=== PATIENT | male | born 1975 ===

== ENCOUNTER 2017-07-26 12:31 | Emergency (ER) | payer OTHER ==
[2017-07-26 12:53] VITALS: RESP 18
[2017-07-26] MEDS ORDERED: Sodium Chloride 0.9% 1,000 ML IV STA ×2 (13:33→14:39)
[2017-07-26] MEDS ORDERED: Piperacillin/Tazobact 3.375 GM in Sodium Chloride 0.9% 100 ML IVPB STA (13:34)
--- NOTE | 2017-07-26 13:41 | ED PDOC ---
HPI: General Adult Time Seen by Provider: 07/26/17 13:10 Chief Complaint (Nursing): Abnormal Skin Integrity History Per: Patient Additional Complaint(s): Pt. states since Thursday he's had a painful mass around his testicular area which has been progressively enlarging. Reports that he was waiting for mass to burst open but it has not. Pain became worse today. Denies dysuria, hematuria, fever, penile discharge, testicular trauma. Against Medical Advice - AMA Patient Left Against Medical Advice: The patient declines admission to the hospital and wishes to leave the Emergency Department. This action is against my medical advice. This decision was made with informed refusal. The patient was told that admission to the hospital is necessary. Explanation of the reasons why were discussed. The risks of leaving were explained to the patient and include, but are not limited to, worsening of known or currently unknown conditions, permanent disability and from undiagnosed or untreated conditions. The patient has the capacity to make this informed decision and understands my explanation of the current medical problem and risks of leaving. The patient voluntarily accepts these risks and signed an AMA form documenting our conversation. The patient was given the opportunity to ask questions and reconsider. The patient was encouraged to return to the Emergency Department at any time for further care. 07/26/17 16:55 Patient informed that he will need to stay in hospital for further antibiotic treatment and surgical consultation. Pt. does not want to wait any longer as he cannot stay in the hospital tonight. Pt. informed that this infection can spread easily spread and cause . States he will return to ED tomorrow morning. Pt. will sign AMA. Past Medical History Reviewed: Historical Data, Nursing Documentation, Vital Signs Vital Signs: Last Vital Signs Temp 98.2 F 07/26/17 12:51 Pulse 98 H 07/26/17 12:51 Resp 18 07/26/17 12:51 BP 134/67 07/26/17 12:51 Pulse Ox 98 07/26/17 15:30 - Family History Family History: States: Unknown Family Hx - Immunization History Hx Tetanus Toxoid Vaccination: No Hx Influenza Vaccination: No Hx Pneumococcal Vaccination: No - Home Medications Home Medications: Ambulatory Orders Medication Instructions Recorded Neomycin/Polymyxin/Hydrocortis 3 drop TOP TID #1 bottle 07/30/16 [Cortisporin Otic Susp] - Allergies Allergies/Adverse Reactions: Allergies Allergy/AdvReac Type Severity Reaction Status Date / Time No Known Allergies Allergy Verified 07/26/17 12:51 Review of Systems ROS Statement: Except As Marked, All Systems Reviewed And Found Negative Physical Exam - Physical Exam Appears: Positive for: Well, Non-toxic, No Acute Distress Skin: Positive for: Normal Color, Warm, DRY Eye Exam: Positive for: Normal appearance Gastrointestinal/Abdominal: Positive for: Normal Exam, Soft. Negative for: Tenderness Male Genital Exam: Positive for: other (large perineal erythematous mass which is tender and fluctuant without break in skin integrity or discharge noted). Negative for: lesions, scrotum tenderness (R), scrotum tenderness (L), testicular tenderness (R), testicular tenderness (L), urethral discharge Extremity: Positive for: Normal ROM Neurologic/Psych: Positive for: Alert, Oriented. Negative for: Aphasia, Facial Droop - Laboratory Results Result Diagrams: 07/26/17 14:30 07/26/17 14:30 - ECG O2 Sat by Pulse Oximetry: 98 - Progress ED Course And Treament: Labs ordered. Blood culture x 2, urine culture ordered. CT pelvis w/ IV contrast, testicular US ordered. Zosyn IV, Vancomycin IV ordered. 1541 VBG lactate: 2.3 Repeat 3hr VBG ordered. IV NS bolus ordered. 1530 Testicular US: non-specific scrotal wall thickening/edema; no evidence testicular torsion as per radiology report. Pending CT results. 1604 CT abd/pelvis w/ IV contrast: superficial L perineal abscess measuring 5.2 x 1.8cm with reactive swelling to scrotum and penis. Case d/w Dr. Farfan who recommends admission for pt. due to elevated WBC and lactate. Case d/w Dr. Ely, surgical garment assembly supervisor, who will see patient in hospital today. Pt. informed of results and plan but does not want to stay in the hospital and needs to leave immediately. Vancomycin was ordered but not given. Pt. does not want to wait for antibiotic infusion. Toradol 30mg IVP ordered. See AMA note. Disposition - Clinical Impression Clinical Impression: Perineal abscess, Sepsis - Patient ED Disposition Is Patient to be Admitted: No - Disposition Disposition: Against Medical Advice Disposition Time: 16:04 Condition: STABLE Additional Instructions: RETURN TO ED IMMEDIATELY FOR ANY CONCERNS OR QUESTIONS Instructions: Against Medical Advice (ED), Abscess (ED) Forms: [facility] ([place]ian)
[2017-07-26 14:19] LABS: VENOUS BLOOD GAS BASE EXCESS 0.8 mmol/L (0.0-2.0); VENOUS BLOOD GAS PCO2 46 mmHg (40-60); VENOUS BLOOD PH 7.37 (7.32-7.43)
[2017-07-26 14:46] LABS: ALB/GLOB RATIO 1.2 (1.0-2.1); ALKALINE PHOSPHATASE 90 U/L (38-126); ALT/SGPT 56 U/L (21-72); AST/SGOT 37 U/L (17-59); BILIRUBIN,TOTAL 0.3 mg/dl (0.2-1.3); BLOOD UREA NITROGEN 9 mg/dl (9-20); CALCIUM 9.4 mg/dL (8.4-10.2); CARBON DIOXIDE 24 mmol/L (22-30); CHLORIDE 101 mmol/L (98-107); GFR AFRICAN-AMERICAN > 60; GLUCOSE,RANDOM 84 mg/dL (75-110); SODIUM 139 mmol/l (132-148)
--- NOTE | 2017-07-26 14:55 | US ---
HISTORY: scrotal swelling TECHNIQUE: Realtime sonography through the scrotum with color and doppler flow. COMPARISON: None Available. FINDINGS: RIGHT TESTICLE: Measures 4.3 x 3.2 x 1.9 cm. Normal echotexture and flow. RIGHT EPIDIDYMIS: Epididymal head measures 1.4 x 0.9 x 0.9 cm. Grossly unremarkable appearance with normal flow. 0.4 x 0.3 x 0.3 centimeter epididymal head cyst. LEFT TESTICLE: Measures 4.0 x 2.7 x 2.0 cm. Normal echotexture and flow. LEFT EPIDIDYMIS: Epididymal head measures 1.1 x 1.1 x 0.5 cm. Grossly unremarkable appearance with normal flow. HYDROCELE: None. VARICOCELE: None. OTHER FINDINGS: Nonspecific scrotal wall thickening/edema. IMPRESSION: Nonspecific scrotal wall thickening/ edema. No evidence of testicular torsion.
[2017-07-26 14:57] LABS: BASO % 0.3 % (0.0-2.0); EOS # 0.2 K/uL (0.0-0.7); EOS % 1.4 % (0.0-4.0); HEMATOCRIT 39.2 % (35.0-51.0); LYMPH # 1.2 K/uL (1.0-4.3); LYMPH % 9.1 % (20.0-40.0); MEAN CELL VOLUME 85.1 fl (80.0-94.0); MEAN CORPUSCULAR HEMOGLOBIN 27.4 pg (27.0-31.0); MEAN CORPUSCULAR HGB CONC 32.2 g/dL (33.0-37.0); MEAN PLATELET VOLUME 8.2 fl (7.2-11.7); MONO # 1.4 K/uL (0.0-0.8); MONO % 10.7 % (0.0-10.0); NEUT # 9.9 K/uL (1.8-7.0); NEUT % 78.5 % (50.0-75.0); PLATELET COUNT 278 K/uL (130-400); RED CELL DISTRIBUTION WIDTH 14.5 % (11.5-14.5); WHITE BLOOD COUNT 12.6 K/uL (4.8-10.8)
[2017-07-26] MEDS ORDERED: Iohexol 300 100 ML IJ ONE (15:12)
[2017-07-26 15:28] LABS: EOSINOPHIL 2 % (0-7); NEUTROPHIL 75 % (42-75); TOTAL CELLS COUNTED 100
--- NOTE | 2017-07-26 16:06 | CT ---
PROCEDURE: CT Abdomen and Pelvis with contrast HISTORY: perineal mass COMPARISON: None. TECHNIQUE: Contrast dose: 95 mL Omnipaque 300 Radiation dose: Total exam DLP = 1236.5 mGy-cm. This CT exam was performed using one or more of the following dose reduction techniques: Automated exposure control, adjustment of the mA and/or kV according to patient size, and/or use of iterative reconstruction technique. FINDINGS: LOWER THORAX: Unremarkable. LIVER: Unremarkable. No gross lesion or ductal dilatation. GALLBLADDER AND BILE DUCTS: Unremarkable. PANCREAS: Unremarkable. No gross lesion or ductal dilatation. SPLEEN: Unremarkable. ADRENALS: Unremarkable. No mass. KIDNEYS AND URETERS: Unremarkable. No hydronephrosis. No solid mass. VASCULATURE: Unremarkable. No aortic aneurysm. BOWEL: Colonic diverticulosis without evidence for diverticulitis. No obstruction. No gross mural thickening. APPENDIX: Normal appendix. PERITONEUM: Small fat containing . No free fluid. No free air. LYMPH NODES: Unremarkable. No enlarged lymph nodes. BLADDER: Unremarkable. REPRODUCTIVE: Scrotal and penile swelling. BONES: No acute fracture. OTHER FINDINGS: 5.2 x 1.8 centimeter rim enhancing fluid collection in the left perineal area (series 3, image 210). IMPRESSION: Superficial left perineal abscess measuring 5.2 x 1.8 centimeter. Reactive scrotal and penile soft tissue swelling. Additional findings as above. Findings conveyed to PELON Jara by Dr. Jacinto at 4 p.m. on 07/26/2017.
[2017-07-26 17:00] VITALS: BP 139/86; PULSE 94; TEMP 98.3
[2017-07-26 17:19] VITALS: O2SAT 98
[2017-07-26 17:22] LABS: RBC URINE 1 /hpf (0-3); URINE BILIRUBIN NEGATIVE (NEGATIVE); URINE BLOOD NEGATIVE (NEGATIVE); URINE COLOR STRAW (YELLOW); URINE GLUCOSE (UA) NEG (Normal); URINE KETONE NEGATIVE (NEGATIVE); URINE LEUKOCYTE ESTERASE NEG Leu/uL (Negative); URINE PROTEIN NEGATIVE (NEGATIVE); URINE UROBILINOGEN 0.2-1.0 mg/dL (0.2-1.0); WBC URINE < 1 /hpf (0-5)
== END 2017-07-26 17:02 | disposition left against medical advice (07) ==
LOC: H.ER 12:31
DX: L02.215 Cutaneous abscess of perineum (principal); A41.9 Sepsis, unspecified organism
CPT/HCPCS: 74177; 80053; 81003; 82803; 85025; 87040; 87086; 93975; 96374; 99283; J1885; J2543; J7040; Q9967

== ENCOUNTER 2017-07-27 13:05 | Observation (INO) | payer OTHER ==
--- NOTE | 2017-07-27 14:22 | ED PDOC ---
HPI: Male Pain Time Seen by Provider: 07/27/17 13:48 Chief Complaint (Nursing): Male Genitourinary Chief Complaint (Provider): Abscess History Per: Patient History/Exam Limitations: no limitations Additional Complaint(s): Pt. with perineal area swelling and pain for 3 days. Here yesterday and dx with abscess in the area. Pt. AMA and is back after moving his car yesterday. Pt. with no abd pain, testicular pain, weakness, headaches, dizziness, fever, chills. No numbness, tingles. Past Medical History Reviewed: Nursing Documentation, Vital Signs Vital Signs: Last Vital Signs Temp 99 F 07/27/17 13:34 Pulse 103 H 07/27/17 13:34 Resp 18 07/27/17 13:34 BP 132/84 07/27/17 13:34 Pulse Ox 100 07/27/17 13:34 - Medical History PMH: No Chronic Diseases - Surgical History Surgical History: No Surg Hx - Family History Family History: States: Unknown Family Hx - Living Arrangements Living Arrangements: With Family - Social History Alcohol: None Drugs: Denies - Immunization History Hx Tetanus Toxoid Vaccination: No Hx Influenza Vaccination: No Hx Pneumococcal Vaccination: No - Home Medications Home Medications: Ambulatory Orders Medication Instructions Recorded Neomycin/Polymyxin/Hydrocortis 3 drop TOP TID #1 bottle 07/30/16 [Cortisporin Otic Susp] - Allergies Allergies/Adverse Reactions: Allergies Allergy/AdvReac Type Severity Reaction Status Date / Time No Known Allergies Allergy Verified 07/26/17 12:51 Review of Systems ROS Statement: Except As Marked, All Systems Reviewed And Found Negative Genitourinary Male: Positive for: Other (perineal pain) Physical Exam - Physical Exam Appears: Positive for: Non-toxic, No Acute Distress Skin: Positive for: Normal Color, Warm, DRY Eye Exam: Positive for: EOMI, Normal appearance, PERRL ENT: Positive for: Normal ENT Inspection Neck: Positive for: Normal, Painless ROM Cardiovascular/Chest: Positive for: Regular Rate, Rhythm Respiratory: Positive for: CNT, Normal Breath Sounds Gastrointestinal/Abdominal: Positive for: Normal Exam, Bowel Sounds, Soft. Negative for: Tenderness Male Genital Exam: Positive for: other (perineal yanira with 5.5cm abscess with fluctuance, erythema, tenderness toward L side) Back: Positive for: Normal Inspection. Negative for: L CVA Tenderness, R CVA Tenderness Extremity: Positive for: Normal ROM. Negative for: Tenderness, Pedal Edema Neurologic/Psych: Positive for: Alert, Oriented - Laboratory Results Result Diagrams: 07/27/17 14:40 Interpretation Of Abn Labs: 13.2 wbc - ECG O2 Sat by Pulse Oximetry: 100 Pulse Ox Interpretation: Normal - Progress ED Course And Treament: 1452: Stable. Spoke with Dr. Elias who will admit. Spoke with Dr. Quintanilla who will consult and does not want to be primary admitting doctor. Pt. stable. Severe sepsis based on labs from yesterday. WBC mild increase today. Disposition - Clinical Impression Clinical Impression: Perineal abscess, Severe sepsis - Patient ED Disposition Is Patient to be Admitted: No Counseled Patient/Family Regarding: Studies Performed, Diagnosis - Disposition Disposition Time: 14:53 Condition: FAIR - Pt Status Changed To: Hospital Disposition Of: Inpatient - Admit Certification Admit to Inpatient:: After my assessment, the patient will require hospitalization for at least two midnights. This is because of the severity of symptoms shown, intensity of services needed, and/or the medical risk in this patient being treated as an outpatient. - POA Present On Arrival: None
[2017-07-27] MEDS ORDERED: Sodium Chloride 0.9% 1,000 ML IV STA (14:23)
[2017-07-27 14:47] LABS: BASO # 0.1 K/uL (0.0-0.2); BASO % 0.4 % (0.0-2.0); EOS # 0.2 K/uL (0.0-0.7); EOS % 1.2 % (0.0-4.0); HEMATOCRIT 38.2 % (35.0-51.0); LYMPH # 0.9 K/uL (1.0-4.3); LYMPH % 7.2 % (20.0-40.0); MEAN CORPUSCULAR HEMOGLOBIN 27.3 pg (27.0-31.0); MEAN CORPUSCULAR HGB CONC 32.5 g/dL (33.0-37.0); MONO # 1.3 K/uL (0.0-0.8); MONO % 9.9 % (0.0-10.0); NEUT # 10.8 K/uL (1.8-7.0); NEUT % 81.3 % (50.0-75.0); RED CELL DISTRIBUTION WIDTH 14.2 % (11.5-14.5); WHITE BLOOD COUNT 13.2 K/uL (4.8-10.8)
[2017-07-27 14:54] LABS: BLOOD UREA NITROGEN 10 mg/dl (9-20); CALCIUM 9.3 mg/dL (8.4-10.2); CARBON DIOXIDE 24 mmol/L (22-30); CHLORIDE 102 mmol/L (98-107); GFR AFRICAN-AMERICAN > 60; GLUCOSE,RANDOM 93 mg/dL (75-110); POTASSIUM 3.9 MMOL/L (3.6-5.0); SODIUM 136 mmol/l (132-148); TOTAL PROTEIN 7.7 G/DL (6.3-8.2)
[2017-07-27] MEDS ORDERED: Clindamycin 600mg/50ml NS 600 MG/50 ML BAG IVPB STA (14:54)
[2017-07-27 14:55] LABS: ALB/GLOB RATIO 1.3 (1.0-2.1); ALKALINE PHOSPHATASE 91 U/L (38-126); ALT/SGPT 67 U/L (21-72); AST/SGOT 34 U/L (17-59); BILIRUBIN,TOTAL 0.4 mg/dl (0.2-1.3)
[2017-07-27 15:10] LABS: VENOUS BLOOD GAS PCO2 38 mmHg (40-60); VENOUS BLOOD PH 7.43 (7.32-7.43)
[2017-07-27] MEDS: Clindamycin 600mg/50ml NS 600 MG/50 ML BAG IVPB SCH ×2 (15:25→23:53)
[2017-07-27] MEDS: Sodium Chloride 0.9% 1,000 ML IV SCH (15:45)
--- NOTE | 2017-07-27 16:33 | CP.PCM.HP ---
History of Present Illness - History of Present Illness History of Present Illness: This is a 41 year old male with no significant past medical history, from [place], who presents to the ED with the complaint of perineal swelling and pain getting progressively worse over the past week. The patient states that he had similar swelling in that area about 2 months ago but it went away after about a week. This time the swelling and pain is much worse prompting him to come to the ED. The patient originally came to the ED yesterday but left AMA. He came back again today due to the pain. In the ED, he was seen to have a large perineal abscess and surrounding cellulitis and meets the criteria for sepsis. Dr. Quintanilla, general surgery, was consulted from the ED. The patient is to be placed on observation for further workup and surgical management. Patient denies chest pain, shortness of breath, fevers, chills, nausea, vomiting, diarrhea, headache. Rest of ROS as below. All of the patient's and/or family's questions were answered at the bedside. Present on Admission - Present on Admission Any Indicators Present on Admission: No Review of Systems - Hematologic/Lymphatic Additional comments: GENERAL/CONSTITUTIONAL: The patient denies fever, fatigue, weakness, weight gain or weight loss. HEAD, EYES, EARS, NOSE AND THROAT: Eyes - The patient denies pain, redness, loss of vision, double or blurred vision, flashing lights or spots, dryness, Ears, nose, mouth and throat. The patient denies ringing in the ears, loss of hearing, nosebleeds, loss of sense of smell, dry sinuses, sinusitis, post nasal drip, CARDIOVASCULAR: The patient denies chest pain, chest pressure, or irregular heartbeats, RESPIRATORY: The patient denies chronic dry cough, coughing up blood, coughing up mucus, wheezing, or shortness of breath. GASTROINTESTINAL: The patient denies decreased appetite, nausea, vomiting, vomiting blood or coffee ground material, heartburn, regurgitation, diarrhea, constipation, gas, blood in the stools, black tarry stools. GENITOURINARY: The patient denies difficult urination, pain or burning with urination, blood in the urine, frequency, or urgency MUSCULOSKELETAL: The patient denies arm, buttock, thigh or calf cramps. No joint or muscle pain. No muscle weakness or tenderness. No joint swelling, neck pain, back pain. SKIN: + Perineal pain and swelling. The patient denies easy bruising, skin rash , hives, sensitivity to sun exposure, tightness, nodules or bumps, hair loss, color changes in the hands or feet with cold. NEUROLOGIC: The patient denies headache, dizziness, fainting, muscle spasm, loss of consciousness, sensitivity or pain in the hands and feet or memory loss. PSYCHIATRIC: The patient denies anxiety, depression, or thoughts of suicide. ENDOCRINE: The patient denies intolerance to hot or cold temperature, flushing, fingernail changes, increased thirst, or increased salt intake HEMATOLOGIC/LYMPHATIC: The patient denies anemia, bleeding tendency or clotting tendency. ALLERGIC/IMMUNOLOGIC: The patient denies rhinitis, asthma, skin sensitivity, latex allergies or sensitivity. Past Patient History - Infectious Disease Hx of Infectious Diseases: None - Past Medical History & Family History Past Medical History?: No Pertinent Family History: Mother has diabetes mellitus - Past Social History Smoking Status: Never Smoked Alcohol: None Drugs: Denies - PSYCHIATRIC Hx Substance Use: No - SURGICAL HISTORY Hx Surgeries: No - ANESTHESIA Hx Anesthesia: No Meds Allergies/Adverse Reactions: Allergies Allergy/AdvReac Type Severity Reaction Status Date / Time No Known Allergies Allergy Verified 07/26/17 12:51 Physical Exam - Additional Findings Additional findings: Physical exam: Constitutional- cooperative, awake, alert Head- NCAT, PERRL Eye- PERRL, EOMI ENT- normal exam, MMM. Neck- normal inspection, supple, no JVD Respiratory- CTAB, no wheezes rales rhonchi Cardiovascular- RRR, +S1, +S2 no MRG GI/Abdominal- normal bowel sounds, soft, no mass, no hsm Skin- + 4x4 cm area of the perineum with fluctuance and surrounding erythema consistent with abscess, with minimal drainage. Skin is otherwise warm, dry Extremities Exam- normal capillary refill, normal inspection Neurological Exam- alert, awake, oriented Psych- normal mood, normal affect Results - Vital Signs Recent Vital Signs: Last Vital Signs Temp 99 F 07/27/17 13:34 Pulse 103 H 07/27/17 13:34 Resp 18 07/27/17 13:34 BP 132/84 07/27/17 13:34 Pulse Ox 100 07/27/17 14:53 - Labs Result Diagrams: 07/27/17 14:40 07/27/17 14:40 Labs: Laboratory Results - last 24 hr 07/27/17 07/27/17 07/27/17 14:40 14:40 15:02 WBC 13.2 H RBC 4.55 Hgb 12.4 Hct 38.2 MCV 84.0 MCH 27.3 MCHC 32.5 L RDW 14.2 Plt Count 287 MPV 8.0 Neut % (Auto) 81.3 H Lymph % (Auto) 7.2 L [place] % (Auto) 9.9 Eos % (Auto) 1.2 Baso % (Auto) 0.4 Neut # 10.8 H Lymph # 0.9 L [place] # 1.3 H Eos # 0.2 Baso # 0.1 pO2 33 VBG pH 7.43 VBG pCO2 38 L VBG HCO3 24.8 VBG Total CO2 26.4 VBG O2 Sat (Calc) 73.0 H VBG Base Excess 1.0 VBG Potassium 4.1 Glucose 97 Lactate 1.4 FiO2 21.0 Sodium 136 135.0 Potassium 3.9 Chloride 102 105.0 Carbon Dioxide 24 Anion Gap 14 BUN 10 Creatinine 0.8 Est GFR ( Amer) > 60 Est GFR (Non-Af Amer) > 60 Random Glucose 93 Calcium 9.3 Total Bilirubin 0.4 AST 34 ALT 67 Alkaline Phosphatase 91 Total Protein 7.7 Albumin 4.3 Globulin 3.4 Albumin/Globulin Ratio 1.3 Venous Blood Potassium 4.1 Assessment & Plan - Assessment and Plan (Free Text) Plan: ASSESSMENT/PLAN The patient is a 41 year old male admitted for sepsis due to perineal abscess Perineal abscess and sepsis - Observation on telemetry - General surgery consultation with Dr. Quintanilla for I&D. Patient is at acceptable medical risk for procedure given no medical problems. - Continue Clindamycin 600 mg IVPB for MRSA coverage - Bacid for c. diff prophylaxis while on clindamycin - Toradol for pain control - Fever PRN for fever - Monitor vitals - IV fluids Dehydration - Concentrated urine, normal renal fxn - NS at 75 cc/hour overnight DVT prophylaxis - SCDs
--- NOTE | 2017-07-27 17:45 | CP.PCM.CON ---
History of Present Illness - History of Present Illness History of Present Illness: General Surgery Consult Note for Dr. Quintanilla This 41M with a PMH of multiple abscesses presents to the ED due to pain in his perineum since . He was reported to the Ed yesterday however he left AMA. Today he returns with the same complaint. He denies fevers, chills, chest pain, SOB nausea vomiting diarrhea or any other systemic symptoms. He reports some non foul smelling drainage noted on his underwear. PMH: Denies PSH: Denies Social: Denies Tobacco, Ethanol, Drugs All: NKDA Review of Systems - Review of Systems All systems: reviewed and no additional remarkable complaints except - EENT Eyes: absent: Loss of Vision Ears: absent: Ear Discharge, Tinnitus, Dizziness - Cardiovascular Cardiovascular: absent: Chest Pain, Chest Pain at Rest, Syncope - Respiratory Respiratory: absent: Dyspnea, Dyspnea on Exertion, Chest Congestion - Gastrointestinal Gastrointestinal: absent: Abdominal Pain, Bloating - Genitourinary Genitourinary: absent: Change in Urinary Stream, Difficulty Urinating, Dysuria - Integumentary Integumentary: Furuncle, Lesions. absent: Bleeding Lesions Additional comments: Fluctuant erythematous lesion on the left perinium Past Patient History - Infectious Disease Hx of Infectious Diseases: None - Past Medical History & Family History Past Medical History?: No - Past Social History Smoking Status: Never Smoked Alcohol: None Drugs: Denies - CARDIAC Hx Cardiac Disorders: No - PULMONARY Hx Respiratory Disorders: No - NEUROLOGICAL Hx Neurological Disorder: No - HEENT Hx HEENT Problems: No - RENAL Hx Chronic Kidney Disease: No - ENDOCRINE/METABOLIC Hx Endocrine Disorders: No - HEMATOLOGICAL/ONCOLOGICAL Hx Blood Disorders: No - INTEGUMENTARY Hx Dermatological Problems: No - MUSCULOSKELETAL/RHEUMATOLOGICAL Hx Musculoskeletal Disorders: No - GENITOURINARY/GYNECOLOGICAL Hx Genitourinary Disorders: No - PSYCHIATRIC Hx Substance Use: No - SURGICAL HISTORY Hx Surgeries: No - ANESTHESIA Hx Anesthesia: No Meds Allergies/Adverse Reactions: Allergies Allergy/AdvReac Type Severity Reaction Status Date / Time No Known Allergies Allergy Verified 07/26/17 12:51 - Medications Medications: Current Medications Acetaminophen (Tylenol 325mg Tab) 650 mg PO Q6 PRN PRN Reason: Fever >100.4 F Sodium Chloride (Sodium Chloride 0.9%) 1,000 mls @ 75 mls/hr IV .[id number] [facility] Last Admin: 07/27/17 15:45 Dose: 75 mls/hr Clindamycin Phosphate (Cleocin In Normal Saline) 600 mg in 50 mls @ 50 mls/hr IVPB Q8H ARELY PRN Reason: Protocol Last Admin: 07/27/17 15:25 Dose: Not Given Ketorolac Tromethamine (Toradol) 30 mg IVP Q6 PRN PRN Reason: Pain, moderate (4-7) Lactobacillus Acidophilus (Bacid Acidophilus) 1 cap PO BID [facility] Physical Exam - Constitutional Appears: Non-toxic - Head Exam Head Exam: ATRAUMATIC, NORMOCEPHALIC - Eye Exam Eye Exam: EOMI - ENT Exam ENT Exam: Mucous Membranes Moist - Respiratory Exam Respiratory Exam: NORMAL BREATHING PATTERN - Cardiovascular Exam Cardiovascular Exam: +S1, +S2 - GI/Abdominal Exam GI & Abdominal Exam: Soft - Rectal Exam Rectal Exam: NORMAL INSPECTION - Neurological Exam Neurological exam: Alert, Oriented x3 - Skin Skin Exam: Dry Additional comments: Tender fluctuant mass in perineum Results - Vital Signs Recent Vital Signs: Last Vital Signs Temp 98.4 F 07/27/17 17:16 Pulse 95 H 07/27/17 17:16 Resp 14 07/27/17 17:16 BP 127/76 07/27/17 17:16 Pulse Ox 99 07/27/17 17:16 - Labs Result Diagrams: 07/27/17 14:40 07/27/17 14:40 Labs: Laboratory Results - last 24 hr 07/27/17 07/27/17 07/27/17 14:40 14:40 15:02 WBC 13.2 H RBC 4.55 Hgb 12.4 Hct 38.2 MCV 84.0 MCH 27.3 MCHC 32.5 L RDW 14.2 Plt Count 287 MPV 8.0 Neut % (Auto) 81.3 H Lymph % (Auto) 7.2 L [place] % (Auto) 9.9 Eos % (Auto) 1.2 Baso % (Auto) 0.4 Neut # 10.8 H Lymph # 0.9 L [place] # 1.3 H Eos # 0.2 Baso # 0.1 pO2 33 VBG pH 7.43 VBG pCO2 38 L VBG HCO3 24.8 VBG Total CO2 26.4 VBG O2 Sat (Calc) 73.0 H VBG Base Excess 1.0 VBG Potassium 4.1 Glucose 97 Lactate 1.4 FiO2 21.0 Sodium 136 135.0 Potassium 3.9 Chloride 102 105.0 Carbon Dioxide 24 Anion Gap 14 BUN 10 Creatinine 0.8 Est GFR ( Amer) > 60 Est GFR (Non-Af Amer) > 60 Random Glucose 93 Calcium 9.3 Total Bilirubin 0.4 AST 34 ALT 67 Alkaline Phosphatase 91 Total Protein 7.7 Albumin 4.3 Globulin 3.4 Albumin/Globulin Ratio 1.3 Venous Blood Potassium 4.1 Assessment & Plan - Assessment and Plan (Free Text) Assessment: 41M with perennial abscess Bedside insicion and drainage ABX Re-evaluate in AM D/W Dr. Dwight Gambino PGY2
[2017-07-27] MEDS ORDERED: Lidocaine 1% Inj (20ml) IJ ONE (17:48)
[2017-07-27] MEDS ORDERED: Bupivacaine 0.5% Inj(30mL) INJ ONE (17:48)
[2017-07-27] MEDS: Lactobacillus Acidophilus 500 MU Cap PO SCH (18:00)
[2017-07-28 05:51] LABS: HEMATOCRIT 34.4 % (35.0-51.0); MEAN CELL VOLUME 84.2 fl (80.0-94.0); MEAN CORPUSCULAR HEMOGLOBIN 28.2 pg (27.0-31.0); MEAN CORPUSCULAR HGB CONC 33.4 g/dL (33.0-37.0); RED CELL DISTRIBUTION WIDTH 14.3 % (11.5-14.5); WHITE BLOOD COUNT 9.6 K/uL (4.8-10.8)
--- NOTE | 2017-07-28 08:24 | CP.PCM.PN ---
Subjective - Date & Time of Evaluation Date of Evaluation: 07/28/17 Time of Evaluation: 07:00 - Subjective Subjective: GENERAL SURGERY PROGRESS NOTE FOR DR. DAVIS Patient seen and examined at bedside. He reports some pain at the I&D site but is not requesting any pain medication. Packing was removed. No drainage was seen. Area was repacked and dressing changed. Objective - Vital Signs/Intake and Output Vital Signs (last 24 hours): Temp Pulse Resp BP Pulse Ox 98.5 F 88 18 116/74 98 07/28/17 05:41 07/28/17 05:41 07/28/17 05:41 07/28/17 05:41 07/28/17 05:41 - Medications Medications: Current Medications Acetaminophen (Tylenol 325mg Tab) 650 mg PO Q6 PRN PRN Reason: Fever >100.4 F Sodium Chloride (Sodium Chloride 0.9%) 1,000 mls @ 75 mls/hr IV .[id number] [facility] Last Admin: 07/27/17 15:45 Dose: 75 mls/hr Clindamycin Phosphate (Cleocin In Normal Saline) 600 mg in 50 mls @ 50 mls/hr IVPB Q8H ARELY PRN Reason: Protocol Last Admin: 07/27/17 23:53 Dose: 50 mls/hr Ketorolac Tromethamine (Toradol) 30 mg IVP Q6 PRN PRN Reason: Pain, moderate (4-7) Lactobacillus Acidophilus (Bacid Acidophilus) 1 cap PO BID [facility] Last Admin: 07/27/17 18:00 Dose: 1 cap - Labs Labs: 07/28/17 04:20 07/27/17 14:40 - Constitutional Appears: Well, Non-toxic, No Acute Distress - Head Exam Head Exam: ATRAUMATIC, NORMAL INSPECTION - Eye Exam Eye Exam: EOMI, Normal appearance - Respiratory Exam Respiratory Exam: NORMAL BREATHING PATTERN. absent: Respiratory Distress - Cardiovascular Exam Cardiovascular Exam: +S1, +S2 - Exam Additional comments: left scrotal I&D: mild erythema, mild induration, tender. Packing removed, no drainage seen. New packing placed. Dressing changed, - Neurological Exam Neurological Exam: Alert, Awake, Oriented x3 - Psychiatric Exam Psychiatric exam: Normal Affect, Normal Mood - Skin Skin Exam: Dry, Normal Color, Warm Assessment and Plan - Assessment and Plan (Free Text) Assessment: 41yo M with perineal abscess - Afebrile, VSS - Leukocytosis resolved, WBC 9.6 today - Packing removed and replaced - Continue Antibiotics - Will discuss plan with Dr. Dwight Ferrer PGY-3
[2017-07-28 08:30] VITALS: RESP 20
[2017-07-28] MEDS: Lactobacillus Acidophilus 500 MU Cap PO SCH (09:04)
[2017-07-28] MEDS: Clindamycin 600mg/50ml NS 600 MG/50 ML BAG IVPB SCH (09:04)
[2017-07-28] MEDS: Sodium Chloride 0.9% 1,000 ML IV SCH (09:05)
--- NOTE | 2017-07-28 10:42 | CP.PCM.PN ---
<Ghassan Sabillon - Last Filed: 07/28/17 10:38> Subjective - Date & Time of Evaluation Date of Evaluation: 07/28/17 Time of Evaluation: 10:38 - Subjective Subjective: 41 year old male with no significant PMHx seen at bedside one day s/p bedside I and D of perineal abscess. Patient is AAO x 3 and NAD resting comfortably in bed. Denies any acute overnight events. States that the surgical residents came earlier today and changed his dressing without incident. Denies any pain in the area of the I and D and states that he feels much better. Denies any acute N/V/F /C/CP/SOB/posterior calf pain/urinary retention/constipation. Denies any further complaints at this time Objective - Vital Signs/Intake and Output Vital Signs (last 24 hours): Temp Pulse Resp BP Pulse Ox 97.6 F 69 20 159/84 H 97 07/28/17 08:27 07/28/17 08:27 07/28/17 08:27 07/28/17 08:27 07/28/17 08:27 - Medications Medications: Current Medications Acetaminophen (Tylenol 325mg Tab) 650 mg PO Q6 PRN PRN Reason: Fever >100.4 F Clindamycin Phosphate (Cleocin In Normal Saline) 600 mg in 50 mls @ 50 mls/hr IVPB Q8H ARELY PRN Reason: Protocol Last Admin: 07/28/17 09:04 Dose: 50 mls/hr Ketorolac Tromethamine (Toradol) 30 mg IVP Q6 PRN PRN Reason: Pain, moderate (4-7) Lactobacillus Acidophilus (Bacid Acidophilus) 1 cap PO BID COUNTS INCLUDE 234 BEDS AT THE [facility] Last Admin: 07/28/17 09:04 Dose: 1 cap - Labs Labs: 07/28/17 04:20 07/27/17 14:40 - Constitutional Appears: Well, Non-toxic, No Acute Distress - Head Exam Head Exam: ATRAUMATIC, NORMOCEPHALIC - Eye Exam Eye Exam: EOMI, PERRL Pupil Exam: PERRL - ENT Exam ENT Exam: Mucous Membranes Moist - Neck Exam Neck Exam: Full ROM. absent: Tenderness - Respiratory Exam Respiratory Exam: Clear to Ausculation Bilateral, NORMAL BREATHING PATTERN - Cardiovascular Exam Cardiovascular Exam: REGULAR RHYTHM - GI/Abdominal Exam GI & Abdominal Exam: Soft. absent: Firm, Guarding, Rigid, Tenderness - Rectal Exam Rectal Exam: Deferred - Extremities Exam Extremities Exam: Normal Inspection - Neurological Exam Neurological Exam: Alert, Awake, Oriented x3 - Psychiatric Exam Psychiatric exam: Normal Affect, Normal Mood - Skin Skin Exam: Intact, Normal Color, Warm Assessment and Plan - Assessment and Plan (Free Text) Assessment: The patient is a 41 year old male admitted on 07/27/17 for sepsis due to perineal abscess. Patient underwent bedside I and D of abscess on same day and was kept in Tele for 23 hour obs. Patient hemodynamically stable at this time and to be DC home this afternoon pending clearance from surgery. Plan: Perineal abscess and sepsis - Observation on telemetry - Bedside I and D of abscess with Dr. Quintanilla 07/27/17 - Continue Clindamycin 600 mg IVPB for MRSA coverage - Bacid for c. diff prophylaxis while on clindamycin - Toradol for pain control - Tylenol PRN for fever - Monitor vitals - IV fluids Anemia - H/H 11.5/34.4 - Most likely secondary to I and D - Monitor HTN - BP 159/84 Dehydration - Concentrated urine, normal renal fxn - NS at 75 cc/hour given overnight DVT prophylaxis - SCDs <Mekhi Elias - Last Filed: 07/28/17 16:58> Objective - Vital Signs/Intake and Output Vital Signs (last 24 hours): Temp Pulse Resp BP Pulse Ox 97.9 F 73 20 125/78 99 07/28/17 11:52 07/28/17 11:52 07/28/17 11:52 07/28/17 11:52 07/28/17 11:52 - Labs Labs: 07/28/17 04:20 07/27/17 14:40
[2017-07-28 11:53] VITALS: BP 125/78; PULSE 73; TEMP 97.9; O2SAT 99
--- NOTE | 2017-07-28 17:06 | CP.PCM.DIS ---
Provider - Provider Date of Admission: 07/27/17 14:51 Attending physician: Regan Elias DO Consults: Dr. Quintanilla, surgery Time Spent in preparation of Discharge (in minutes): 25 Hospital Course - Lab Results Lab Results: Most Recent Lab Values WBC 9.6 K/uL (4.8-10.8) 07/28/17 04:20 RBC 4.09 Mil/uL (4.40-5.90) L 07/28/17 04:20 Hgb 11.5 g/dL (12.0-18.0) L 07/28/17 04:20 Hct 34.4 % (35.0-51.0) L 07/28/17 04:20 MCV 84.2 fl (80.0-94.0) 07/28/17 04:20 MCH 28.2 pg (27.0-31.0) 07/28/17 04:20 MCHC 33.4 g/dL (33.0-37.0) 07/28/17 04:20 RDW 14.3 % (11.5-14.5) 07/28/17 04:20 Plt Count 274 K/uL (130-400) 07/28/17 04:20 MPV 8.0 fl (7.2-11.7) 07/27/17 14:40 Neut % (Auto) 81.3 % (50.0-75.0) H 07/27/17 14:40 Lymph % (Auto) 7.2 % (20.0-40.0) L 07/27/17 14:40 [place] % (Auto) 9.9 % (0.0-10.0) 07/27/17 14:40 Eos % (Auto) 1.2 % (0.0-4.0) 07/27/17 14:40 Baso % (Auto) 0.4 % (0.0-2.0) 07/27/17 14:40 Neut # 10.8 K/uL (1.8-7.0) H 07/27/17 14:40 Lymph # 0.9 K/uL (1.0-4.3) L 07/27/17 14:40 [place] # 1.3 K/uL (0.0-0.8) H 07/27/17 14:40 Eos # 0.2 K/uL (0.0-0.7) 07/27/17 14:40 Baso # 0.1 K/uL (0.0-0.2) 07/27/17 14:40 pO2 33 mm/Hg (30-55) 07/27/17 15:02 VBG pH 7.43 (7.32-7.43) 07/27/17 15:02 VBG pCO2 38 mmHg (40-60) L 07/27/17 15:02 VBG HCO3 24.8 mmol/L 07/27/17 15:02 VBG Total CO2 26.4 mmol/L (22-28) 07/27/17 15:02 VBG O2 Sat (Calc) 73.0 % (40-65) H 07/27/17 15:02 VBG Base Excess 1.0 mmol/L (0.0-2.0) 07/27/17 15:02 VBG Potassium 4.1 mmol/L (3.6-5.2) 07/27/17 15:02 Sodium 135.0 mmol/L (132-148) 07/27/17 15:02 Chloride 105.0 mmol/L (98-107) 07/27/17 15:02 Glucose 97 mg/dL (75-110) 07/27/17 15:02 Lactate 1.4 mmol/L (0.7-2.1) 07/27/17 15:02 FiO2 21.0 % 07/27/17 15:02 Sodium 136 mmol/l (132-148) 07/27/17 14:40 Potassium 3.9 MMOL/L (3.6-5.0) 07/27/17 14:40 Chloride 102 mmol/L (98-107) 07/27/17 14:40 Carbon Dioxide 24 mmol/L (22-30) 07/27/17 14:40 Anion Gap 14 (10-20) 07/27/17 14:40 BUN 10 mg/dl (9-20) 07/27/17 14:40 Creatinine 0.8 mg/dl (0.8-1.5) 07/27/17 14:40 Est GFR ( Amer) > 60 07/27/17 14:40 Est GFR (Non-Af Amer) > 60 07/27/17 14:40 Random Glucose 93 mg/dL (75-110) 07/27/17 14:40 Calcium 9.3 mg/dL (8.4-10.2) 07/27/17 14:40 Total Bilirubin 0.4 mg/dl (0.2-1.3) 07/27/17 14:40 AST 34 U/L (17-59) 07/27/17 14:40 ALT 67 U/L (21-72) 07/27/17 14:40 Alkaline Phosphatase 91 U/L (38-126) 07/27/17 14:40 Total Protein 7.7 G/DL (6.3-8.2) 07/27/17 14:40 Albumin 4.3 g/dL (3.5-5.0) 07/27/17 14:40 Globulin 3.4 gm/dL (2.2-3.9) 07/27/17 14:40 Albumin/Globulin Ratio 1.3 (1.0-2.1) 07/27/17 14:40 Venous Blood Potassium 4.1 mmol/L (3.6-5.2) 07/27/17 15:02 - Hospital Course Hospital Course: This is a 41 year old male with no significant past medical history, from [place], who presents to the ED with the complaint of perineal swelling and pain getting progressively worse over the past week. The patient states that he had similar swelling in that area about 2 months ago but it went away after about a week. This time the swelling and pain is much worse prompting him to come to the ED initially on 07/26 but left AMA. He came again to the ED on . He was seen to have a large perineal abscess and surrounding cellulitis and met the criteria for sepsis. Dr. Quintanilla, general surgery, was consulted from the ED. The patient was subsequently placed on observation and given IV fluids and Clindamycin for IV abx. General surgery resident I&D the abscess at bedside. Today, the patient was seen to be hemodynamically stable. The wound was dressed and repacked by surgery. He was discharged home today in stable condition with po Clindamycin, Tylenol, and Bacid for GI court protection while on Clinda. Discharge Exam - Head Exam Head Exam: ATRAUMATIC, NORMOCEPHALIC - Additional Findings Additional findings: Physical exam: Constitutional- cooperative, awake, alert Head- NCAT, PERRL Eye- PERRL, EOMI ENT- normal exam, MMM. Neck- normal inspection, supple, no JVD Respiratory- CTAB, no wheezes rales rhonchi Cardiovascular- RRR, +S1, +S2 no MRG GI/Abdominal- normal bowel sounds, soft, no mass, no hsm Skin- warm, dry dressing c/d/i Extremities Exam- normal capillary refill, normal inspection Neurological Exam- alert, awake, oriented Psych- normal mood, normal affect Discharge Plan - Discharge Medications Prescriptions: Acetaminophen [Tylenol 325mg tab] 650 mg PO Q6 PRN #30 tab PRN Reason: Pain, Mild (1-3) Clindamycin [Cleocin] 300 mg PO Q8H 5 Days cap Lactobacillus Acidophilus [Bacid Acidophilus] 1 cap PO BID 7 Days #14 cap - Follow Up Plan Condition: FAIR Disposition: HOME/ ROUTINE Instructions: Abscess (GEN) Additional Instructions: f/u w Dr. Quintanilla / ED as directed for wound mgmt Take antibiotics and Bacid as prescribed Tylenol PRN for pain
== END 2017-07-28 13:02 | disposition home or self-care (01) ==
LOC: H.ER 13:05 → INTOOBSV 14:51 → H.ERHOLD 14:51 → H.TEL 17:04
PROVIDERS: ADMIT Internal Medicine; ATTEND Internal Medicine
DX: A41.9 Sepsis, unspecified organism (principal); L02.215 Cutaneous abscess of perineum; E86.0 Dehydration; R65.20 Severe sepsis without septic shock; D64.9 Anemia, unspecified; I10 Essential (primary) hypertension
CPT/HCPCS: 10060; 36415; 80053; 82803; 85025; 85027; 87070; 96374; 99285; G0378; J1885; J7040

== ENCOUNTER 2018-11-11 11:57 | Emergency (ER) | payer OTHER ==
[2018-11-11 12:12] VITALS: BP 145/93; PULSE 97; RESP 18; TEMP 97.7; O2SAT 98
--- NOTE | 2018-11-11 13:30 | ED PDOC ---
HPI: Male Pain Time Seen by Provider: 11/11/18 12:48 Chief Complaint (Nursing): Male Genitourinary Chief Complaint (Provider): Left scrotal mass and tenderness History Per: Patient History/Exam Limitations: no limitations Additional Complaint(s): 43 y/o M with hx of perineal abscess in 2016 who presents with Left testicular pain and swelling. Pt states that he began noticing swelling and pain in his left testicle yesterday. He admits to having a subjective fever but denies chills, night sweats, dyuria, urinary frequency. Patient had a perineal abscess in 07/2017 that presented similarly and he is concerned that it may have returned. Denies pain with defecation, hematochezia. Past Medical History Vital Signs: Last Vital Signs Temp 97.7 F 11/11/18 12:10 Pulse 97 H 11/11/18 12:10 Resp 18 11/11/18 12:10 BP 145/93 H 11/11/18 12:10 Pulse Ox 98 11/11/18 12:10 - Medical History PMH: Denies: Chronic Kidney Disease - Surgical History Surgical History: Tonsillectomy - Family History Family History: States: Unknown Family Hx - Immunization History Hx Tetanus Toxoid Vaccination: No Hx Influenza Vaccination: No Hx Pneumococcal Vaccination: No - Home Medications Home Medications: Ambulatory Orders Medication Instructions Recorded Clindamycin [Cleocin] 450 mg PO TID 7 Days cap 11/11/18 Ibuprofen [Motrin Tab] 600 mg PO Q6 PRN 7 Days tab 11/11/18 - Allergies Allergies/Adverse Reactions: Allergies Allergy/AdvReac Type Severity Reaction Status Date / Time No Known Allergies Allergy Verified 07/26/17 12:51 Physical Exam - Reviewed Nursing Documentation Reviewed: Yes Vital Signs Reviewed: Yes - Physical Exam Appears: Positive for: Uncomfortable Male Genital Exam: Positive for: scrotum tenderness (L) (+ diffuse Left scrotal tenderness and swelling with firm mass on palpation), other (performed in the presence of bakery pastry internship, ARMEN Alvarado) - Laboratory Results Result Diagrams: 11/11/18 13:30 11/11/18 13:30 - ECG O2 Sat by Pulse Oximetry: 98 Medical Decision Making Medical Decision Making: CBC, CMP Blood culture U/A, urine culture Testicular U/S Pelvis CT w/ IV contrast Toradol 30mg IV x 1 Testicular U/S: RIGHT TESTICLE: Measures 4.5 x 3.1 x 2.1 cm. Homogeneous echotexture. No mass. Normal flow demonstrated. RIGHT EPIDIDYMIS: Normal size. Mildly heterogeneous echogenicity, of uncertain significance. I ncidental 5 mm epididymal cyst. Normal vascularity. LEFT TESTICLE: Measures 4.0 x 3.2 x 2.2 cm. Homogeneous echotexture. No mass. Normal flow demonstrated. LEFT EPIDIDYMIS: Normal size. Heterogeneous echotexture, uncertain significance. No mass. Normal vascularity.No mass. HYDROCELE: None. VARICOCELE: None. OTHER FINDINGS: Markedly thickened scrotal wall diffusely suspicious for cellulitis. In the inferior scrotal wall there is a collection of mildly heterogeneously echogenic avascular soft tissue density surrounded by marked hypervascularity, consistent with phlegmon or abscess. This measures approximately 2.2 x 2.3 x 5.9 cm. IMPRESSION: Probable scrotal wall phlegmon or abscess, 5.9 cm greatest dimension. No evidence of epididymo-orchitis. Suspect scrotal wall cellulitis. Pelvis CT w/ IV contrast: ADDENDUM: Addendum dictation: Please note that the examination was performed following the intravenous administration of contrast material. 95 cc of Omnipaque 300 was administered intravenously for this examination. [ Addendum Report Added by Beny Rainey MD at 11/11/2018 16:22:01 ] Date of service: 11/11/2018 PROCEDURE: CT pelvis HISTORY: hx of perineal abscess, recurrent sx COMPARISON: CT abdomen/pelvis 07/26/2017 TECHNIQUE: 2.5 mm contiguous axial sections were acquired through the pelvis, from the iliac crests through the perineum and scrotum. Sagittal and coronal images were reformatted from the axial scan. Contrast administered: None Total exam DLP: 991.47 mGy-cm. This CT exam was performed using 1 or more of the following dose reduction techniques: Automated exposure control, adjustment of the mA and/or kV according to patient size, and/or use of iterative reconstruction technique. FINDINGS: There is a fluid collection in the left scrotal wall measuring approximately 1.5 x 5.6 x 2.3 cm. This is similar in location appearance to the prior examination of 07/26/2017. The scrotal wall is thickened on the left side consistent with scrotal cellulitis. The right scrotal wall is unremarkable. There is no hydrocele. Peripheral enhancement cannot be gauged in the absence of intravenous contrast administration. There is diverticulosis of the sigmoid colon without evidence of diverticulitis. No other abnormal bowel loops are identified. The urinary bladder is unremarkable. A normal prostate is identified. There is mild bilateral pelvic lymphadenopathy. Shotty inguinal lymphadenopathy is noted bilaterally. There is no ascites. There is no significant osseous abnormality identified. IMPRESSION: Probable left scrotal cellulitis with intramural fluid collection, 5.6 cm in greatest dimension. Possible abscess. No other significant abnormality 16:30: pt re-evaluated: states that testicle "popped" during U/S. Re-examined in the presence of ER [employer] Training Instructor Marilee, purulent drainage noted on tissue in scro ky area but no active purulent drainage appreciated. Surgery consulted given re-accumulation of collection treated by surgery previously. Seen by surgery consult who states that patient can be discharged as per Dr. Carballo with return instructions given on antibiotics. Patient in agreement [facility] plan. Stable for d/c home. Disposition - Clinical Impression Clinical Impression: Perineal abscess, Scrotal abscess - Patient ED Disposition Is Patient to be Admitted: No Discussed With : Prateek Carballo Doctor Will See Patient In The: ED - Disposition Disposition: Routine/Home Disposition Time: 21:26 Condition: STABLE
[2018-11-11 13:38] VITALS: BMI 38.6
[2018-11-11 13:48] LABS: BASO % 0.3 % (0.0-2.0); EOS # 0.1 K/uL (0.0-0.7); EOS % 0.8 % (0.0-4.0); HEMOGLOBIN 12.2 g/dL (12.0-18.0); LYMPH # 0.9 K/uL (1.0-4.3); LYMPH % 7.8 % (20.0-40.0); MEAN CELL VOLUME 85.9 fl (80.0-94.0); MEAN CORPUSCULAR HGB CONC 32.6 g/dL (33.0-37.0); MEAN PLATELET VOLUME 8.1 fl (7.2-11.7); MONO # 1.4 K/uL (0.0-0.8); MONO % 11.7 % (0.0-10.0); NEUT # 9.5 K/uL (1.8-7.0); NEUT % 79.4 % (50.0-75.0); PLATELET COUNT 233 K/uL (130-400); RBC 4.37 Mil/uL (4.40-5.90); RED CELL DISTRIBUTION WIDTH 13.6 % (11.5-14.5)
[2018-11-11 13:51] LABS: ALB/GLOB RATIO 1.2 (1.0-2.1); ALBUMIN 4.2 g/dL (3.5-5.0); ALT/SGPT 36 U/L (21-72); AST/SGOT 28 U/L (17-59); BLOOD UREA NITROGEN 10 mg/dl (9-20); CALCIUM 9.4 mg/dL (8.4-10.2); GFR NON-AFRICAN AMERICAN > 60
[2018-11-11] MEDS ORDERED: Iohexol 300 100 ML IJ ONE (14:27)
--- NOTE | 2018-11-11 14:54 | US ---
Date of service: 11/11/2018 HISTORY: L testicular pain and swelling TECHNIQUE: Realtime sonography through the scrotum with color and doppler flow. COMPARISON: None Available. FINDINGS: RIGHT TESTICLE: Measures 4.5 x 3.1 x 2.1 cm. Homogeneous echotexture. No mass. Normal flow demonstrated. RIGHT EPIDIDYMIS: Normal size. Mildly heterogeneous echogenicity, of uncertain significance. Incidental 5 mm epididymal cyst. Normal vascularity. LEFT TESTICLE: Measures 4.0 x 3.2 x 2.2 cm. Homogeneous echotexture. No mass. Normal flow demonstrated. LEFT EPIDIDYMIS: Normal size. Heterogeneous echotexture, uncertain significance. No mass. Normal vascularity.No mass. HYDROCELE: None. VARICOCELE: None. OTHER FINDINGS: Markedly thickened scrotal wall diffusely suspicious for cellulitis. In the inferior scrotal wall there is a collection of mildly heterogeneously echogenic avascular soft tissue density surrounded by marked hypervascularity, consistent with phlegmon or abscess. This measures approximately 2.2 x 2.3 x 5.9 cm. IMPRESSION: Probable scrotal wall phlegmon or abscess, 5.9 cm greatest dimension. No evidence of epididymo-orchitis. Suspect scrotal wall cellulitis.
[2018-11-11 15:08] LABS: BANDS 4 % (0-2); EOSINOPHIL 1 % (0-7); LYMPHOCYTE 9 % (20-50); MONOCYTE 13 % (0-10); NEUTROPHIL 73 % (42-75); TOTAL CELLS COUNTED 100
[2018-11-11 15:09] LABS: ANISOCYTOSIS SLIGHT; HYPOCHROMIC SLIGHT; PLATELET ESTIMATE NORMAL (NORMAL)
[2018-11-11 15:52] LABS: VENOUS BLOOD GAS BASE EXCESS 0.5 mmol/L (0.0-2.0); VENOUS BLOOD GAS PCO2 41 mmHg (40-60); VENOUS BLOOD GAS PO2 37 mm/Hg (30-55)
--- NOTE | 2018-11-11 15:53 | CT ---
Date of service: 11/11/2018 PROCEDURE: CT pelvis HISTORY: hx of perineal abscess, recurrent sx COMPARISON: CT abdomen/pelvis 07/26/2017 TECHNIQUE: 2.5 mm contiguous axial sections were acquired through the pelvis, from the iliac crests through the perineum and scrotum. Sagittal and coronal images were reformatted from the axial scan. Contrast administered: None Total exam DLP: 991.47 mGy-cm. This CT exam was performed using 1 or more of the following dose reduction techniques: Automated exposure control, adjustment of the mA and/or kV according to patient size, and/or use of iterative reconstruction technique. FINDINGS: There is a fluid collection in the left scrotal wall measuring approximately 1.5 x 5.6 x 2.3 cm. This is similar in location appearance to the prior examination of 07/26/2017. The scrotal wall is thickened on the left side consistent with scrotal cellulitis. The right scrotal wall is unremarkable. There is no hydrocele. Peripheral enhancement cannot be gauged in the absence of intravenous contrast administration. There is diverticulosis of the sigmoid colon without evidence of diverticulitis. No other abnormal bowel loops are identified. The urinary bladder is unremarkable. A normal prostate is identified. There is mild bilateral pelvic lymphadenopathy. Shotty inguinal lymphadenopathy is noted bilaterally. There is no ascites. There is no significant osseous abnormality identified. IMPRESSION: Probable left scrotal cellulitis with intramural fluid collection, 5.6 cm in greatest dimension. Possible abscess. No other significant abnormality.
[2018-11-11] MEDS ORDERED: Clindamycin 600mg/50ml D5W 600 MG/50 ML VIAL IVPB STA (16:37)
[2018-11-11] MEDS ORDERED: Piperacillin/Tazobact 3.375 GM in Sodium Chloride 0.9% 100 ML IVPB ONE (16:49)
[2018-11-11] MEDS ORDERED: Piperacillin/Tazobact 3.375 gm Inj IVPB ONE (17:57)
--- NOTE | 2018-11-11 18:16 | CP.PCM.CON ---
History of Present Illness - History of Present Illness History of Present Illness: General Surgery Consult Note for Dr. Carballo This is a 43M who presented to ED due to complaint of testicular pain and firmness that started yesterday. He was seen by me in 07/2017 for the same reason and a BEDSIDE I&D was carried out. Cultures taken at that time were negative and recovered well. Today he reports that his abscess spontaneously burst with copious output when he was in the CT scanner. He reports now his pain is resolved. He denies any fevers and chills at home. He deniesa ny chest pain or SOB. PMH: Denies PSH: Denies Social: Denies Tobacco, Ethanol, Drugs All: NKDA Review of Systems - Review of Systems Review of Systems: 12 point review of systems conducted and negative aside from left sided testicular pain Past Patient History - Infectious Disease Hx of Infectious Diseases: None - Past Medical History & Family History Past Medical History?: No - Past Social History Smoking Status: Never Smoked - CARDIAC Hx Cardiac Disorders: No - PULMONARY Hx Respiratory Disorders: No - NEUROLOGICAL Hx Neurological Disorder: No - HEENT Hx HEENT Problems: No - RENAL Hx Chronic Kidney Disease: No - ENDOCRINE/METABOLIC Hx Endocrine Disorders: No - HEMATOLOGICAL/ONCOLOGICAL Hx Blood Disorders: No - INTEGUMENTARY Hx Dermatological Problems: No - MUSCULOSKELETAL/RHEUMATOLOGICAL Hx Musculoskeletal Disorders: No - GASTROINTESTINAL Hx Gastrointestinal Disorders: No - GENITOURINARY/GYNECOLOGICAL Hx Genitourinary Disorders: No - PSYCHIATRIC Hx Psychophysiologic Disorder: No Hx Substance Use: No - SURGICAL HISTORY Hx Tonsillectomy: Yes - ANESTHESIA Hx Anesthesia: No Meds Home Medications: Home Medication List Medication Instructions Recorded Confirmed Type Clindamycin [Cleocin] 450 mg PO TID 7 Days cap 11/11/18 Rx Ibuprofen [Motrin Tab] 600 mg PO Q6 PRN 7 Days tab 11/11/18 Rx Allergies/Adverse Reactions: Allergies Allergy/AdvReac Type Severity Reaction Status Date / Time No Known Allergies Allergy Verified 07/26/17 12:51 Physical Exam - Constitutional Appears: Non-toxic, No Acute Distress - Head Exam Head Exam: ATRAUMATIC, NORMOCEPHALIC - Eye Exam Eye Exam: EOMI - ENT Exam ENT Exam: Mucous Membranes Moist - Respiratory Exam Respiratory Exam: NORMAL BREATHING PATTERN - Cardiovascular Exam Cardiovascular Exam: +S1, +S2 - GI/Abdominal Exam GI & Abdominal Exam: Soft. absent: Tenderness - Exam Additional comments: left sided scrotal erythema with opening without fluid expression - Neurological Exam Neurological exam: Alert, Oriented x3 - Psychiatric Exam Psychiatric exam: Normal Affect, Normal Mood - Skin Skin Exam: Dry, Intact Results - Vital Signs Recent Vital Signs: Last Vital Signs Temp 97.7 F 11/11/18 12:10 Pulse 97 H 11/11/18 12:10 Resp 18 11/11/18 12:10 BP 145/93 H 11/11/18 12:10 Pulse Ox 98 11/11/18 16:32 - Labs Result Diagrams: 11/11/18 13:30 11/11/18 13:30 Labs: Laboratory Results - last 24 hr 11/11/18 11/11/18 11/11/18 13:30 13:30 15:46 WBC 12.0 H RBC 4.37 L Hgb 12.2 Hct 37.5 MCV 85.9 MCH 28.0 MCHC 32.6 L RDW 13.6 Plt Count 233 MPV 8.1 Neut % (Auto) 79.4 H Lymph % (Auto) 7.8 L Wilkin % (Auto) 11.7 H Eos % (Auto) 0.8 Baso % (Auto) 0.3 Neut # (Auto) 9.5 H Lymph # (Auto) 0.9 L Wilkin # (Auto) 1.4 H Eos # (Auto) 0.1 Baso # (Auto) 0.0 Neutrophils % (Manual) 73 Band Neutrophils % 4 H Lymphocytes % (Manual) 9 L Monocytes % (Manual) 13 H Eosinophils % (Manual) 1 Platelet Estimate Normal Hypochromasia (manual) Slight Anisocytosis (manual) Slight pO2 37 VBG pH 7.40 VBG pCO2 41 VBG HCO3 24.6 VBG Total CO2 26.7 VBG O2 Sat (Calc) 75.8 H VBG Base Excess 0.5 VBG Potassium 4.0 Glucose 104 Lactate 1.6 FiO2 21.0 Sodium 138 136.0 Potassium 3.9 Chloride 103 103.0 Carbon Dioxide 25 Anion Gap 14 BUN 10 Creatinine 0.7 L Est GFR ( Amer) > 60 Est GFR (Non-Af Amer) > 60 Random Glucose 109 Calcium 9.4 Total Bilirubin 0.4 AST 28 ALT 36 Alkaline Phosphatase 84 Total Protein 7.5 Albumin 4.2 Globulin 3.4 Albumin/Globulin Ratio 1.2 Venous Blood Potassium 4.0 - Imaging and Cardiology CT scan - pelvis Status: Image reviewed by me, Report reviewed by me Assessment & Plan - Assessment and Plan (Free Text) Assessment: 43M with reccurent scrotal abscess D/C home with PO abx Warm compresses 20 min on and 20 min off Return if no improvement or if symptoms worsen Otherwise follow up in office in 1 week D/W Dr. Kait Gambino PGY3
== END 2018-11-11 20:20 | disposition home or self-care (01) ==
LOC: H.ER 11:57 → H.ERHOLD 17:31 → UNDOADMIN 17:31
DX: L02.215 Cutaneous abscess of perineum (principal); N45.4 Abscess of epididymis or testis; N49.2 Inflammatory disorders of scrotum
CPT/HCPCS: 72193; 80053; 82803; 85025; 87040; 93975; 96374; 99283; J1885; J2543; Q9967